=== PATIENT | male | born 1955 | race Asian ===

== ENCOUNTER 2016-08-23 12:27 | Day surgery (SDC) | payer BC ==
[2016-08-19 12:11] VITALS: BMI 23.7
[2016-08-23] MEDS ORDERED: LIDOCAINE HCL 1%, 10 MG/ML (20ML VIAL) ONE (13:11)
[2016-08-23] MEDS ORDERED: BUPIVACAINE HCL/PF 0.5% (5MG/ML) 10 ML VIAL ONE (13:12)
[2016-08-23] MEDS ORDERED: MIDAZOLAM HCL 2 MG/2 ML SINGLE DOSE VIAL ONE (14:03)
[2016-08-23] MEDS ORDERED: PROPOFOL 20 ML ONE (14:03)
[2016-08-23] MEDS ORDERED: ceFAZolin SODIUM 1 GM VIAL ONE (14:05)
[2016-08-23] MEDS ORDERED: ONDANSETRON 4 MG/2 ML VIAL IVPUSH PRN (14:25)
[2016-08-23] MEDS ORDERED: PROMETHAZINE HCL 25 MG/1 ML VIAL IVPUSH PRN (14:25)
[2016-08-23] MEDS ORDERED: LACTATED RINGERS SOLUTION 1,000 ML IV SCH (14:30)
[2016-08-23] MEDS ORDERED: LIDOCAINE HCL/PF 2% SDV 5ML VIAL ONE (14:36)
[2016-08-23] MEDS ORDERED: KETOROLAC TROMETHAMINE 30 MG/1 ML VIAL ONE (14:41)
[2016-08-23 15:28] VITALS: TEMP 97.8
--- NOTE | 2016-08-23 15:28 | HP ---
[facility] - Chief Complaint Chief Complaint: left wrist mass, pain History of Present Illness: left wrist mass History Source: Patient Limitations to Obtaining History: No Limitations - Past Medical History Allergies/Adverse Reactions: Allergies Allergy/AdvReac Type Severity Reaction Status Date / Time APPLES/PEARS Allergy Mild ITCH IN EAR Uncoded 08/23/16 12:53 - Current Medications Current Medications: Home Medications Medication Instructions Recorded Amlodipine Besylate 5 mg PO HS 08/19/16 Cholecalciferol (Vitamin D3) 50,000 unit PO WEEKLY 08/19/16 [Vitamin D3] Cyanocobalamin [Vitamin B12 -] 100 mcg PO DAILY 08/19/16 [facility]ellite Physical Exam - Physical Examination Vital Signs: Vital Signs Period Temp Pulse Resp BP Sys/Ramirez Pulse Ox Last 24 Hr 97.9 F 61 16 127/73 97 General Appearance: Well Nourished ENT: Clear Lung: Clear to auscultation Heart: Regular rate & rhythm Breasts: Soft Abdomen: Soft Extremities: No edema [facility] Impression/Plan - Impression/Plan Impression: left wrist mass, pain Operative Procedure: excision mass left wrist Date to be Performed: 08/23/16
--- NOTE | 2016-08-23 15:29 | OP ---
Operative Note - Note: Operative Date: 08/23/16 Pre-Operative Diagnosis: painful left wrist mass Operation: excision mass left wrist Post-Operative Diagnosis: Same as Pre-op Surgeon: Elliott Salmon Anesthesiologist/OFFICE CORRESPONDENT: Reynold Guzmán Anesthesia: General, Local Specimens Removed: mass left wrist Estimated Blood Loss (mls): 0 Blood Volume Replaced (mls): 0 Fluid Volume Replaced (mls): 500 Operative Report Dictated: Yes
[2016-08-23 16:55] VITALS: BP 124/73; PULSE 49
--- NOTE | 2016-08-24 12:42 | OP ---
DATE OF OPERATION: 08/23/2016 PREOPERATIVE DIAGNOSIS: Left wrist mass. POSTOPERATIVE DIAGNOSIS: Left wrist mass. PROCEDURE: Excision mass, left wrist. SURGEON: Elliott Rudolph MD MANAGER PLANNING: None. ANESTHESIOLOGIST: Reynold Guzmán MD ANESTHESIA: MAC anesthesia with local injection of 10 mL of 0.5% Marcaine 1% lidocaine mixed. DRAINS: None. COMPLICATIONS: None. FLUID REPLACEMENT: PlasmaLyte, 500 mL. SPECIMEN: Tenosynovium, left wrist. BLOOD LOSS: None. BLOOD GIVEN: None. INDICATIONS: This patient is a 60-year-old male who presents for an excision of the mass on the dorsal aspect of his left wrist. It appears to be tenosynovium, but it is quite painful for him, going up the forearm, and seems to be getting bigger. After understanding the potential risks, complications, alternatives, and benefits of surgery versus nonsurgical treatment, the patient elected to undergo this procedure. Patient does understand this tissue may grow back, and he will have a scar on the dorsal aspect of his hand. DESCRIPTION OF PROCEDURE: The patient was brought to the operating room, peripheral IV was placed, IV sedation was given. One gram of IV Ancef was given, MAC anesthesia was induced. He was placed into the supine position, and tourniquet was applied to the left upper arm. Left upper extremity was prepped and draped in sterile fashion, elevated and exsanguinated with an Esmarch bandage. Tourniquet was inflated to 250 mmHg. A longitudinal incision was marked out with a marking pen. Then, 10 mL of 0.5% Marcaine and 1% lidocaine mix was injected into the surgical incision, and No. 15 scalpel blade was utilized to cut down through the skin. Subcutaneous hemostasis was achieved with the bipolar cautery. Careful dissection was done with the Littler scissors down to the dorsal aspect of the extensor tendon, the extensor retinaculum, and this mass. Self-retaining Weitlaner retractors were placed into the wound. Through careful dissection, I was able to excise a relatively large amount of tenosynovium, looked inflammatory. seen with rheumatoids. It had a very vascular red-orange appearance, was wrapped around the extensor tendons. It went both above and underneath the retinaculum and went down to the dorsal carpal bones. I was able to excise it off the bones with a fresh No. 15 scalpel blade and cauterize the space. I took great care to leave as much of the extensor retinaculum as possible, and the extensor tendons were unharmed. The area was irrigated and washed out. I then used a rongeur to remove a little more of the extensor tenosynovium off of the extensor tendons. Once all of the abnormal tissue that I could directly visualized was removed, the area was copiously irrigated and washed out. I did not see or feel any other abnormal tissue. The area was copiously irrigated and washed out again. Closure was done with 4-0 undyed Vicryl in the deep dermal layer, and final skin reapproximation was done with a running subcuticular 4-0 Biosyn stitch. The area was then washed and dried, covered with Steri-Strips, 4x4, fluffs between the fingers, Webril, and Coban. The tourniquet was taken down after a total tourniquet time of about 18 minutes. There were no complications during the case. The patient tolerated the procedure quite well and was brought to the Ambulatory Recovery Room in stable condition. ELLIOTT RUDOLPH M.D. [id number]
--- NOTE | 2016-08-25 16:50 | PATH ---
Surgical Pathology Report Patient Name: [facility]. Rec. #: [id number] /Age/Gender: 1955 (Age: 60) / M Account: [id number] Location: [facility] SURGICAL Taken: 08/23/2016 Received: 08/24/2016 Reported: 08/25/2016 Physicians: Elliott Salmon M.D. 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 Electronically Signed Franklin Jean M.D. Gross Description Received in formalin, labeled "mass left wrist," is a 2.8 x 2.5 x 0.3 cm aggregate of sotelo-yellow soft tissue fragments. The specimen is entirely submitted in 2 cassettes. /08/24/2016 saudi/08/24/2016
== END 2016-08-23 17:13 | disposition home or self-care (01) ==
LOC: JOR 12:27 → JASU-SURG 12:27
PROVIDERS: ATTEND Orthopaedic Surgery
PROC: 0JBH0ZX Excision of Left Lower Arm Subcutaneous Tissue and Fascia, Open Approach, Diagnostic (ICD-10-PCS; principal; 2016-08-23 14:00)
DX: D48.1 Neoplasm of uncertain behavior of connective and other soft tissue (principal)
CPT/HCPCS: 88304-TC; 94760

== ENCOUNTER 2023-01-25 06:18 | Day surgery (SDC) | payer OTHER, MEDICARE ==
[2023-01-19 14:05] VITALS: BMI 23.7
[2023-01-25] MEDS ORDERED: FENTANYL CITRATE/PF 50 MCG/ML VIAL ONE (07:07)
[2023-01-25] MEDS ORDERED: MIDAZOLAM HCL 2 MG/2 ML SINGLE DOSE VIAL ONE (07:08)
[2023-01-25] MEDS ORDERED: ROPIVACAINE HCL 0.5% 30ML VIAL ONE (07:08)
[2023-01-25] MEDS ORDERED: BUPIVACAINE HCL/EPINEPHRINE/PF 30 ML VIAL IJ ONE ×2 (07:14→08:15)
[2023-01-25] MEDS ORDERED: EPINEPHrine 1:1,000 1,000 MCG/ML ML ONE (07:14)
[2023-01-25] MEDS ORDERED: PROPOFOL 60 ML ONE (07:25)
[2023-01-25] MEDS ORDERED: ONDANSETRON 4 MG/2 ML VIAL ONE (08:06)
[2023-01-25] MEDS ORDERED: ACETAMINOPHEN 1000 MG/100 ML BAG IVPB ONE (09:18)
[2023-01-25] MEDS ORDERED: LACTATED RINGERS SOLUTION 1,000 ML IV SCH (09:30)
[2023-01-25] MEDS ORDERED: ACETAMINOPHEN INJECTION 100 ML IVPB ONE (10:10)
[2023-01-25 10:27] VITALS: PULSE 51; RESP 18; TEMP 97
[2023-01-25 11:33] VITALS: BP 135/85
== END 2023-01-25 11:33 | disposition home or self-care (01) ==
LOC: FASU 06:18
PROVIDERS: ATTEND Orthopaedic Surgery
PROC: 0RNJ4ZZ Release Right Shoulder Joint, Percutaneous Endoscopic Approach (ICD-10-PCS; principal; 2023-01-25 08:16)
PROC: 0RBJ4ZZ Excision of Right Shoulder Joint, Percutaneous Endoscopic Approach (ICD-10-PCS; 2023-01-25 08:16)
DX: M75.122 Complete rotator cuff tear or rupture of left shoulder, not specified as traumatic (principal); M65.812 Other synovitis and tenosynovitis, left shoulder; S43.432D Superior glenoid labrum lesion of left shoulder, subsequent encounter; X58.XXXD Exposure to other specified factors, subsequent encounter
CPT/HCPCS: 94760; C1713; C1763; C1883